=== PATIENT | male | born 1960 | race Caucasian/White ===

== ENCOUNTER 2018-01-08 08:26 | Day surgery (SDC) | payer MEDICAID, SELFPAY ==
--- NOTE | 2018-01-08 06:38 | PDOC.DSDIS_ITS ---
Discharge Plan Disposition Patient Disposition: HOME Condition: Good Discharge Details Reason For Visit: umbilical hernia repair Attending Provider: Katelin Hercules Primary Care Provider: Colton Patton Home Meds and New Rx's Prescriptions: New acetaminophen [Tylenol 8 Hour] 650 mg tablet extended release 650 mg PO Q8H PRN (Reason: pain) Qty: 30 RF: 0 ibuprofen 600 mg tablet 600 mg PO QID PRN (Reason: pain) Qty: 30 RF: 0 Continue betamethasone, augmented 0.05 % cream 1 applic Topical ONCE Qty: 50 RF: 3 aspirin 325 MG tablet,delayed release (DR/EC) 325 mg PO DAILY RF: 0 ketoconazole 120 ML shampoo 1 jak Topical DAILY PRNQty: 2 RF: 4 niacin 1,000 MG tablet extended release 2,000 mg PO DAILY Qty: 180 RF: 4 amlodipine 5 MG tablet 5 mg PO DAILY Qty: 90 RF: 4 hydrocortisone [Anusol-HC] 30 GM cream with perineal applicator 30 gm RC TID Qty: 1 RF: 3 calcium carbonate 600 MG tablet 600 mg PO DAILY Qty: 90 RF: 3 cholecalciferol (vitamin D3) 1,000 UNIT capsule 1,000 unit PO DAILY Qty: 90 RF: 3 Discharge Instructions Instructions: Ventral Hernia Repair (DC) Additional Instructions: Follow up: 01/23/18 at 09:15 Pain Medication: Ibuprofen 600 mg every 6 hours as needed Tylenol 650 mg every 6 hours as needed Miralax or Colace for constipation Other: May shower tomorrow Do not soak the incisions for 1 week May use ice for bruising and swelling Activity: No lifting, pulling or pushing >20 lb x 2 weeks Diet: Low fat 1. Because there will be medication in your system for the next 24 hours, you may feel a little sleepy. Your coordination will be affected. Therefore: a. Do not drive or operate dangerous equipment for 24 hours. b. Do not drink alcohol beverages for 24 hours (not even beer). c. Plan to go home and rest for the day. 2. Generally the only restriction on your activity is no lifting, pulling or pushing more then 20 lb for 4 weeks. You may feel fatigued for 2-4 weeks. 3 After you arrive home you may have a light meal and return to a normal diet as you can tolerate it without feeling sick to your stomach. 4. After surgery, you may feel pain or discomfort. Take the medications as prescribed. 5. If there are any questions regarding the findings of your procedure, please feel free to contact your doctor. 6. If you are unable to contact your doctor with a problem, contact the hospital at [phone]. 7. Continue all your regular medications unless directed otherwise. 8. You are being prescribed a Narcotic pain medication. Narcotic pain medications have an addiction potential for everyone. It is important that you take the medication as prescribed There is a limit on how many tablets we can prescribed, this has been decided by the state Please keep the medications in a secure place and do not let anyone know you have them at home If you have medication left over please discard them by crushing them in a little water and mixing in used coffee grounds or cat litter and putting in the trash. I understand the above instructions and have no questions. Signature of Patient or Responsible Adult Escort Date/Time Name of Responsible Adult Escort Signature of Nurse Date/Time Referrals: Katelin Hercules MD [ [facility] STAFF PHYSICIAN] - 01/23/18 9:15 am Activity:: No lifting >20 lb x 2 weeks Diet:: As Tolerated DS: Diagnosis Discharge Diagnosis (1) Umbilical hernia: Status: Acute
--- NOTE | 2018-01-08 06:39 | HPE_ITS ---
Assessment and Plan (1) Umbilical hernia: Current visit: No Status: Acute P\\ Umbilical Hernia repair with mesh Request bilateral rectus muscle block by anesthesia to assist with post- operative pain control. Risks, benefits and complications of an umbilical hernia repair were discussed with the patient. Occasions include but are not limited to bleeding, pain, infection, wound dehiscence, hernia recurrence, injury to underlying bowel and adverse reaction to the medications. Questions were entertained and answered to their satisfaction and they wish to proceed. No guarantees were given or implied. Bilateral rectus muscle block was discussed with the patient. We also discussed use of Tylenol and ibuprofen for postoperative pain. If narcotics are needed we discussed side effects risks of addiction and how to safely dispose of any leftover medication. History of Present Illness Chief Complaint: Umbilical Hernia repair Narrative: Mr. Mac is a 57-year-old gentleman who is here today with his mother and caregiver to discuss a hernia repair. Mr. Mac tells me that he noticed some discomfort and a small bulge when he was visiting a family member in September. He has not had any pain up until last night when he felt a little discomfort when he went to bed. He denies any changes in bowel habits nausea or vomiting. He underwent a colonoscopy in 2014 and had no issues with a anesthesia at that time. He has a history of hypertension and hyperlipidemia which are both controlled. He does take a full dose aspirin daily which I have asked him to stop. He denies any chest pain or shortness of breath with activity. There have been no changes in his health since he was seen in the office. Review of Systems Cardiovascular Denies rapid heart rate, Denies irregular heart rhythm, Denies dyspnea and Denies dyspnea on exertion Respiratory Denies chest congestion, Denies cough, Denies dyspnea and Denies dyspnea on exertion [facility] Family History Mother Diabetes Essential hypertension Hyperlipidemia Neoplasm Father Diabetes Essential hypertension Heart disease Hyperlipidemia Sister No problems noted. Brother Hyperlipidemia Sister No problems noted. Sister No problems noted. Grandfather No problems noted. Grandfather No problems noted. Grandmother No problems noted. Grandmother No problems noted. Sister No problems noted. Sister No problems noted. Brother No problems noted. Medical History Vitamin B12 deficiency (Chronic) Knee pain, acute (Resolved) Obesity (Chronic) Mental retardation (Chronic) Hyperlipidemia (Chronic 10/06/12) Essential hypertension (Chronic 11/08/15) Personal history of colonic polyps (Resolved) Social History household members: other details: 2 pets and animals: Yes pets and animals: bird(s) Smoking/Tobacco Use Status: Former Tobacco Use alcohol intake: never substance use type: does not use sabrina/hindu: Protestant special sabrina needs: No Surgical History H/O umbilical hernia repair (Acute ~01/08/18) Hx of colonoscopy with polypectomy (Acute ~2014) Meds Home Medications Medication Instructions Recorded Confirmed Type aspirin 325 mg PO DAILY tab-cap 09/28/12 01/08/18 History ketoconazole 1 jak TOPICAL DAILY PRN #2 script 06/21/15 01/08/18 History niacin 2,000 mg PO DAILY #180 tab-cap 06/17/17 01/08/18 Rx amlodipine 5 mg PO DAILY #90 tab-cap 06/27/17 01/08/18 Rx calcium carbonate 600 mg PO DAILY #90 tab-cap 06/27/17 01/08/18 Rx cholecalciferol (vitamin D3) 1,000 unit PO DAILY #90 tab-cap 06/27/17 01/08/18 Rx hydrocortisone [Anusol-Hc 2.5%] 30 gm RC TID #1 script 06/27/17 01/08/18 Rx betamethasone, augmented 0.05 % 1 applic TOPICAL ONCE #50 gm 11/19/17 01/08/18 Rx topical cream Allergies Allergy/AdvReac Type Severity Reaction Status Date / Time No Known Allergies Allergy Unverified 11/19/17 10:42 Exam Const General: cooperative, comfortable and no acute distress Resp Effort & Inspection: normal respiratory effort Auscultation: clear to auscultation bilaterally Cardio Rate: regular rate Heart Sounds: no gallops, no murmurs and no rubs GI Palpation: hernia umbilical
[2018-01-08 08:46] VITALS: BP 132/82; PULSE 67; RESP 18; TEMP 36.2; O2SAT 97
[2018-01-08] MEDS: Lactated Ringers 1,000 ML 80 ML IV (09:06)
[2018-01-08] MEDS: Bupivacaine LIPOSOME/PF 133 MG/10 ML VIAL IJ (09:40)
[2018-01-08] MEDS: Lidocaine 1% Pres-Free 5 ML VIAL (10:00)
[2018-01-08 11:10] VITALS: BP 104/68; PULSE 58; RESP 16; TEMP 35.7; O2SAT 95
[2018-01-08] MEDS: Acetaminophen 325 MG TAB 650 MG PO (11:17)
--- NOTE | 2018-01-08 12:06 | ROE_ITS ---
REPORT OF OPERATIVE PROCEDURE DATE OF PROCEDURE January 08, 2018 PREOPERATIVE DIAGNOSIS Umbilical hernia. POSTOPERATIVE DIAGNOSES Umbilical hernia measuring 1.5 x 2 cm. PROCEDURE Umbilical hernia repair with Ventralex 6.5-cm round hernia patch. ANESTHESIA Monitored Anesthesia Care and bilateral modified rectus muscle block. ANESTHESIA PROVIDER Leonard Carrero C.R.N.A. SURGEON Katelin Hercules M.D. CONGRESSIONAL DISTRICT AIDE TORRIE Guerrero BLOOD LOSS Less than 10 cc. SPECIMENS None. COMPLICATIONS No immediate complications. INDICATIONS FOR PROCEDURE Mr. Mac is a 57-year-old gentleman who noted an umbilical hernia, which has been causing him some d iscomfort. The risks, benefits, and complications of the procedure were reviewed with him and his fam pillo and he wished to proceed. No guarantees were given or implied. DESCRIPTION OF PROCEDURE After informed consent was obtained, the patient was taken to the Operating Room and placed in the sol pine position. SCDs were applied, and a time-out was done. The patient's name, date of , proced ure type, and site, allergies to medications, DVT prophylaxes, and antibiotic given were all reviewed . Next, Anesthesia placed the patient under Monitored Anesthesia with Propofol and did the block. Next, the patient's abdomen was prepped and draped in a sterile surgical fashion, and another time-out was done. 1% lidocaine was then injected just into the dermis below the umbilicus. An incision was made with a #15 blade and dissection was taken down through the subcutaneous tissue down to the fascia usi ng cautery. The umbilical stalk was identified and cut with cautery. The hernia sac was identified an d opened. No bowel was noted within the hernia sac. The hernia sac was trimmed down to the level of t he fascia. A finger sweep under the fascia was done. No adhesions were noted. The opening was measure d and it was 1.5 x 2 cm. A 6.5-cm round Ventralex hernia patch was then placed under the fascia and s ecured in four corners with #2-0 Prolene. Once secured, the fascia was closed with #2-0 Vicryl. The umbilical stalk was attached back down to the fascia using the #2-0 Vicryl. The subcutaneous tissue w as reapproximated using #2-0 Vicryl. The dermis was closed with #4-0 Vicryl. The skin was cleaned and dried, and Skin Affix was applied. The patient was woken up and taken back [facility] condition. Sponge, instrument and needle counts were correct x2 at the end of the case.
== END 2018-01-08 11:50 | disposition home or self-care (01) ==
LOC: SUR 08:26
PROVIDERS: PCP Emergency Medicine; Visit Provider Surgery
PROC: (CPT 49585; principal; 2018-01-08 09:45)
DX: K42.9 Umbilical hernia without obstruction or gangrene (principal); G89.18 Other acute postprocedural pain
CPT/HCPCS: 49585; 76942; NC; C1781; J0131; J0690; J1100; J1885; J2250; J2405; J3010

== ENCOUNTER 2018-09-30 10:34 | Outpatient (CLI) | payer MEDICAID, SELFPAY ==
[2018-09-30 13:05] LABS: Hemoglobin A1C 5.3 % (4.5-6.2)
[2018-10-01 09:12] LABS: PSA, Screening 0.4 ng/ml (0-3.5)
== END 2018-09-30 10:54 ==
PROVIDERS: PCP Emergency Medicine; Visit Provider Emergency Medicine
DX: E11.9 Type 2 diabetes mellitus without complications (principal); E66.9 Obesity, unspecified; Z12.5 Encounter for screening for malignant neoplasm of prostate
CPT/HCPCS: 36415; 84153; 83036

== ENCOUNTER 2019-11-02 04:56 | Outpatient (CLI) | payer MEDICAID, SELFPAY ==
[2019-11-02 12:57] LABS: BUN 21 mg/dL (7-18); CREATININE 1.13 mg/dL (0.70-1.30); Calcium 8.8 mg/dL (8.5-10.1); Calculated LDL 145 mg/dL (<100); Chloride 100 mmol/L (98-107); Cholesterol 218 mg/dL (<200); Glucose 97 mg/dL (74-106); HDL Cholesterol 50 mg/dL (40-60); Potassium 3.9 mmol/L (3.5-5.1); Sodium 137 mmol/L (136-145); Triglyceride 115 mg/dL (<150)
== END 2019-11-02 05:16 ==
PROVIDERS: PCP Emergency Medicine; Visit Provider Emergency Medicine
DX: E78.5 Hyperlipidemia, unspecified (principal); I10 Essential (primary) hypertension
CPT/HCPCS: 36415; 80048; 80061

== ENCOUNTER 2021-04-17 18:26 | Outpatient (REF) | payer MEDICAID, SELFPAY ==
[2021-04-17 19:09] LABS: ALT 32 U/L (16-63); AST 26 U/L (15-37); Albumin 4.6 g/dL (3.4-5.0); Alkaline Phosphatase 75 U/L (46-116); Anion Gap 10.2 mmol/L (3-11); BUN 20 mg/dL (7-18); Bilirubin, Total 0.6 mg/dL (0.2-1.0); CO2 26.8 mmol/L (21.0-32.0); CREATININE 1.1 mg/dL (0.70-1.30); Calcium 9.2 mg/dL (8.5-10.1); Calculated LDL 130 mg/dL (<100); Chloride 104 mmol/L (98-107); Cholesterol 208 mg/dL (<200); Glucose 98 mg/dL (74-106); HDL Cholesterol 58 mg/dL (40-60); Potassium 4.1 mmol/L (3.5-5.1); Sodium 141 mmol/L (136-145); Total Protein 7.6 g/dL (6.4-8.2); Triglyceride 103 mg/dL (<150)
[2021-04-18 17:34] LABS: PSA, Screening 0.5 ng/mL (0.0-4.5)
[2021-04-19 01:11] LABS: Vitamin D 25 Total 36.8 ng/mL (30-100)
[2021-04-19 10:23] LABS: Hepatitis C Ab w Rflx HCV PCR Negative (Negative)
[2021-04-19 10:32] LABS: HIV-1/2 Ag & Ab Screen Negative (Negative)
== END 2021-04-17 18:27 | disposition home or self-care (01) ==
LOC: LBN 18:26
PROVIDERS: PCP Family Medicine; Visit Provider Family Medicine
DX: E55.9 Vitamin D deficiency, unspecified (principal); E78.5 Hyperlipidemia, unspecified; I10 Essential (primary) hypertension; Z11.59 Encounter for screening for other viral diseases; Z12.5 Encounter for screening for malignant neoplasm of prostate; Z11.4 Encounter for screening for human immunodeficiency virus [HIV]
CPT/HCPCS: 80053; 80061; 82306; 84153; 86803; 87389

== ENCOUNTER 2022-11-28 09:03 | Outpatient (REF) | payer MEDICAID, SELFPAY ==
[2022-11-28 21:18] LABS: HCT 43.2 % (40.0-50.0); HGB 14.5 g/dL (13.5-17.5); MCH 31.5 pg (27.0-33.0); MCHC 33.6 % (32.0-36.0); MCV 94 fL (80-95); MPV 10.9 fL (8.0-11.0); Platelet Count 142 10^3/uL (130-400); RBC 4.61 10^6/uL (4.36-5.78); RDW 13.8 % (11.8-14.1); RDW-SD 47.8 fL; WBC 7.95 10^3/uL (4.4-10.8)
[2022-11-28 21:28] LABS: ALT 30 U/L (16-63); AST 36 U/L (15-37); Alkaline Phosphatase 78 U/L (46-116); Anion Gap 5.4 mmol/L (3-11); BUN 16 mg/dL (7-18); Bilirubin, Total 0.3 mg/dL (0.2-1.0); CO2 27.6 mmol/L (21.0-32.0); CREATININE 1.4 mg/dL (0.70-1.30); Calcium 9.2 mg/dL (8.5-10.1); Calculated LDL 145 mg/dL (<100); Chloride 104 mmol/L (98-107); Cholesterol 207 mg/dL (<200); Estimated GFR 56.48 (mL/min/1.73m2); Glucose 103 mg/dL (74-106); HDL Cholesterol 51 mg/dL (40-60); Potassium 4.3 mmol/L (3.5-5.1); Sodium 137 mmol/L (136-145); Total Protein 7.3 g/dL (6.4-8.2); Triglyceride 57 mg/dL (<150)
[2022-11-29 20:09] LABS: PSA, Screening 0.5 ng/mL (<=4.5)
== END 2022-11-28 09:04 | disposition home or self-care (01) ==
LOC: NCHCN 09:03
PROVIDERS: Visit Provider Family Medicine
DX: Z00.00 Encounter for general adult medical examination without abnormal findings (principal); I10 Essential (primary) hypertension; E78.5 Hyperlipidemia, unspecified; Z12.5 Encounter for screening for malignant neoplasm of prostate
CPT/HCPCS: 80053; 80061; 84153; 85027

== ENCOUNTER 2023-11-18 10:30 | Outpatient (REF) | payer MEDICAID, SELFPAY ==
--- OUTSIDE RECORDS SUMMARY | 2023-11-18 10:32 | XMS_ITS | Continuity of Care Document ---
Author Organization [place] - [facility], [facility] Address [address] [place] [address] Care Team Providers Care Bale Sewer Name Role Phone KAMARI BAEZA Dentist Assessment Encounter Date Assessment Date Assessment LastModified by Organization Details LastModified Time 08/18/2023 08/18/2023 Phlegm/rhinitis: The patient has a persistent phlegm, likely due to post-nasal drip or a prolonged after-effects from viral infection. A chest x-ray is recommended to rule out any underlying issues, he did not complete this yet though it was ordered at last visit. He agrees to get xray today or tomorrow at [facility]. The patient should continue to use ahkq-gfi-vegvjnq cough suppressants and consider gargling with salt water for throat discomfort. - A prescription for a combination nasal spray containing an antihistamine will be provided as an alternative to fluticasone (steroid alone). The patient should use this new nasal spray daily for a couple of weeks and monitor for any improvement in symptoms. If symptoms persist, further evaluation and treatment options will be considered during the follow-up appointment. [email or web address] Not available 08/18/2023 18:13:55 Plan of Treatment Reminders Order Date Submit Date Provider Last Modified By Organization Details Last Modified Time Details Appointments Annual Wellness Exam 40 2023 08:30A M Not available Not available Not available Follow Up 20 2023 09:50A M Not available Not available Not available Lab None recorded. Referral None recorded. Procedures None recorded. Surgeries None recorded. Imaging None recorded. Medication Orders Dymista 137 mcg-50 mcg/spray nasal spray 202315/ 024 [facility] #[id number], [address], [place], [place], [id number], 09/08/2023 12:03:38 famotidin e 40 mg tablet 2023 024 [facility] #[id number], [address] [place], [id number], 11/18/2023 08:41:15 Patient TargetsNo targets recorded. Patient Instructions Encounter Date Encounter Id Patient Instructions Last Modified By Organization Details Last Modified Time 08/18/2023 [id number] - Stop using the current fluticasone nasal spray and start using the prescribed combination nasal spray with an antihistamine. - Gargle with salt water to alleviate throat discomfort. - Schedule and complete a chest x-ray. - Continue gpmy-fnx-cxfhvsb cough suppressants and consider salt water gargling for throat discomfort. - Follow up in October or contact the clinic if symptoms worsen or new symptoms arise. [email or web address] Not available 08/18/2023 15:34:22 Reason for Referral None Reported. Results Created Date Observation Date Name Description Value Unit Range Abnormal Flag Note LastModifiedBy Organization Detail LastModifiedTime 08/19/19 24 08/19/2023 XR, chest , 2 view [facility] Eryn Freeman [id number] INFINI TT PACS TRANSC RIPTIO N REPORT _ Patien t Name: AIMEE AGUIAR AENeeraj J MRN: Sex: : Age: [id number] M [age] Accoun t: Access ion: Admit: StayTy pe: [id number] O Stefani d: Order ID: Submit ton: Caio Ferreira er: 2023 09:25 [id number] SHAE PEREZ ton: Techno logist : Result ed: 2023 09:17 KXR 2023 11:17 _ FINAL REPORT EXAM: XR CHEST 2V PA AND LATERA L CLINIC AL HISTOR Y: Reason for Chest: Cough TECHNI QUE: 2D digita l imagin g was perfor med of the chest. Two images were obtain ed. PA and latera l views were obtain ed. COMPAR SUMEET: CHEST SINGLE VIEW from 2011 FINDIN GS: There is poor inspir ation. There is crowdi ng of the pulmon linnea vascul ature. MEDIAS TINUM: Normal . HEART: Normal . PULMON LINNEA VASCUL ATURE: Normal . LUNGS: Hazy increa sed opacit ies are seen in the left lung base. The right lung is clear. PLEURA L SPACE: No pleura l effusi on or pneumo thorax . BONE:W ithin normal limits for the patien t's age. OTHER FINDIN GS:Nor mal. IMPRES NOLA: Questi on of an infilt rate in the left lung base. DATA REPOSI TORY: RADIAT ION DOSE DELIVE RED: Electr onical ly signed by: Marquise Beth ed: 2023 11:17 [facility] (Lab) [address] [place] [address], [address], 08/26/2023 07:46:39 09/12/19 24 09/12/2023 XR, chest , 2 view [facility] RADIOL OGY [place] [id number] RADIOL OGY PACS TRANSC RIPTIO N REPORT _ Patien t Name: AIMEE AGUIAR MRN: Sex: : Age: [id number] M 9[age] Accoun t: Access ion: Admit: StayTy pe: [id number] O Ordere d: Order ID: Submit ton: Caio marcano Provid er: 2023 09:45 [id number] SHAE ALVARENGA ton: Techno logist : Result ed: 2023 09:35 AXS 2023 11:45 _ FINAL REPORT EXAMIN ATION: XR CHEST 2V PA AND LATERA L CLINIC AL HISTOR Y: Reason for Chest: Cough Add'l Info: TECHNI QUE: PA and latera l views of the chest COMPAR SUMEET: Chest radiog raphs 2011 and August 19, 2023 FINDIN GS: Lungs are clear withou t pleura l effusi on or pneumo thorax . Cardio medias tinal contou rs and pulmon linnea vascul ature are normal . No free air below the diaphr agm or focal extrat horaci c soft tissue abnorm ality. No displa jordyn fractu re or destru ctive bone lesion . Multil evel thorac ic spine degene ration . IMPRES NOLA: Normal chest radiog raphs. Thank you for lettin g us partic ipate in the care of this patien t. If you are a health care [facility] and have any questi ons regard ing this report , please contac t the number below. For patien ts who have questi ons please contac t the health care profes sional that reques ton your imagin g first. Electr onical ly signed by: Cody Marroquin MD Radiol laya fontenot ([phone]), at 7/19/2 024 11:45 AM [facility] (Lab) [address] [place], [address], 09/23/2023 11:01:37 11/10/1911/28/2022 imagi ng/dru chávez tic resul t No observ ation record ed. [email or web address] Not Available 11/09 04:34:48 Result Notes None recorded. Problems Name Problem SNOMED Code Status Onset Date Resolution Date Notes Provider Name and Address Organization Details Recorded Time Essential hypertensio n 45450530 Active 2022 Problem Code: I10; Problem Code Type: ICD-10; MD Enid [address], [address] 4 13:22:11 Hyperlipide greta 53608933 Active 2022 Problem Code: E78.5; Problem Code Type: ICD-10; MD Enid [address], [address] 4 13:22:12 Obesity 049309945 Active 2022 Problem Code: E66.9; Problem Code Type: ICD-10; MD Enid [address], [address] 4 13:22:16 Vitamin D deficiency 63690326 Active 2022 Problem Code: E55.9; Problem Code Type: ICD-10; MD Enid [address], [address] 4 13:22:24 Mild neurocognit jaquelin disorder 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 Active 2022 Problem Code: G31.84; Problem Code Type: ICD-Akiko; MD Enid [address], [address] 4 13:22:15 Atrophy of testis 19100388 Active 2022 Problem Code: N50.0; Problem Code Type: ICD-10; MD Enid [address], [address] 4 13:22:08 Umbilical hernia 682960655 Active 2022 Problem Code: K42.9; Problem Code Type: ICD-10; MD Enid [address], [address] 4 13:22:22 Cough 85205627 Active [address], [address] 4 13:22:10 Allergic rhinitis 37603644 Active [address], [address] 4 15:29:13 Pneumonia 577504043 Active [address], [address] 4 17:25:39 Hyperglycem ia 53648432 Active 2023 Maxine nowak, [facility] 4 08:14:39 Problem Notes None recorded. Medical Equipment None Reported. Allergies No known drug allergies Medications Name Sig Start Date Stop Date Status Note LastModified by Organization Details LastModified Time atorvastati n 20 mg tablet Take 1 tablet every day by oral route at bedtime, for hyperlipi demia. 2023 active Not Available Not Available Not Avai lable ketoconazol e 2 % shampoo Shampoo with 2 ml as directed once a day as needed active Not Available Not Available No t Available niacin ER 1,000 mg tablet,exte nded release 24 hr TAKE 2 TABLETS BY MOUTH DAILY active Not Available Not Available No t Available azithromyci n 250 mg tablet TAKE 2 TABLETS (500 MG) BY ORAL ROUTE ONCE DAILY FOR 1 DAY THEN 1 TABLET (250 MG) BY ORAL ROUTE ONCE DAILY FOR 4 DAYS 09/07 completed Not Available Not Available Not Available aspirin 325 mg tablet Take 1 tablet by mouth once a day active Not Available Not Available No t Available famotidine 40 mg tablet TAKE 1 TABLET BY MOUTH EVERY DAY active Not Available Not Available No t Available betamethaso ne, augmented 0.05 % topical cream 08/11 completed Not Available Not Available Not Available amlodipine 5 mg tablet TAKE 1 TABLET BY MOUTH DAILY active Not Available Not Available No t Available acetaminoph en ER 650 mg tablet,exte nded release Take 1 tablet by mouth every eight hours as needed for pain active Not Available Not Available No t Available hydrocortis one 2.5 % topical cream with perineal applicator Apply as directed to affected area three times a day active Not Available Not Available No t Available calcium 600 mg (as calcium carbonate 1,500 mg) tablet TAKE 1 TABLET BY MOUTH ONCE A DAY active Not Available Not Available No t Available ofloxacin 0.3 % ear drops INSTILL 10 DROPS IN AFFECTED EAR(S) DAILY FOR 7 DAYS 07/02 completed Not Available Not Available Not Available lidocaine 5 % topical patch UNWRAP AND APPLY 1 PATCH TO SKIN ONCE DAILY. MAY WEAR UP TO 12 HOURS active Not Available Not Available No t Available betamethaso ne dipropionat e 0.05 % topical cream active Not Available Not Available Not Available ibuprofen 600 mg tablet Take 1 tablet by mouth four times a day as needed for pain active Not Available Not Available No t Available albuterol sulfate HFA 90 mcg/actuati on aerosol inhaler INHALE 2 PUFFS EVERY 4 HOURS active Not Available Not Available No t Available SF 5000 Plus 1.1 % dental cream Use as directed 11/20 completed .drx Not Available Not Available Not Available fluticasone propionate 50 mcg/actuati on nasal spray,suspe nsion SHAKE LIQUID AND USE 1 SPRAY IN EACH NOSTRIL TWICE DAILY 08/17 completed Not Available Not Available Not Available amoxicillin 875 mg-potassiu m clavulanate 125 mg tablet TAKE 1 TABLET BY MOUTH EVERY 12 HOURS 09/07 completed Not Available Not Available Not Available cholecalcif rain (vitamin D3) 25 mcg (1,000 unit) capsule Take 1 capsule by mouth once a day active Not Available Not Available No t Available TobraDex 0.3 %-0.1 % eye drops,suspe nsion SHAKE LIQUID AND INSTILL 1 DROP IN BOTH EYES FOUR TIMES DAILY 07/02 completed Not Available Not Available Not Available Systane (PF) 0.4 %-0.3 % eye drops in a dropperette active Not Available Not Available Not Available azelastine 137 mcg-flutica sone 50 mcg/spray nasal spray SHAKE LIQUID AND USE 1 SPRAY IN EACH NOSTRIL TWICE DAILY 09/07 completed Not Available Not Available Not Available Chest Congestion Relief DM 10 mg-100 mg/5 mL oral syrup TAKE 10 ML BY MOUTH EVERY 4 HOURS 09/07 completed Not Available Not Available Not Available Vitals Date Recorded Body height Body mass index (BMI) Body weight Body temperature Oxygen saturation Oxygen saturation in Arterial blood by Pulse oximetry Heart rate Systolic blood pressure Diastolic blood pressure Provider Name and Address Organization Details Last Updated DateTime 4 173.355 cm 38 kg/m2 798854. 28 g 97.9 [degF] 96 % 96 % 65 /min 142 mm[Hg] 76 mm[Hg] LUCIA LEE MD [address], [place], [address] [place] [address] 4 15:19:37 Social History Question Answer Notes LastModified by Organizat ion Details LastModified Time Tobacco Smoking Status Former Smoker Pari Meneses LPN [facility], [facility] 07/03/2023 09:11:22 Do You Have An Advance Directive? No only One Person--madi t's Mom [email or web address] Information not available 11/18/2023 What Type Of Diet Are You Following? REGULAR Eating More Veggies And Fruits In The Summer [email or web address] Information not available 11/18/2023 How Many Days Of Moderate To Strenuous Exercise, Like A Brisk Walk, Did You Do In The Last 7 Days? 7 [email or web address] Information not available 11/18/2023 On Those Days That You Engage In Moderate To Strenuous Exercise, How Many Minutes, On Average, Do You Exercise? 20 [email or web address] Information not available 11/18/2023 When Did You Quit Smoking? 16+yearssin angel ramos [email or web address] Information not available 07/03/2023 Would You Say That, In General, Your Health Is Good [email or web address] Information not available 11/17/2023 How Often Does Anyone, Including Family, Physically Hurt You? Never [email or web address] Information not available 11/17/2023 How Often Does Anyone, Including Family, Insult Or Talk Down To You? Never [email or web address] Information no t available 11/17/2023 How Often Does Anyone, Including Family, Threaten You With Harm? Never [email or web address] Information not available 11/17/2023 How Often Does Anyone, Including Family, Scream Or Curse At You? Never [email or web address] Information not available 11/17/2023 Within The Past 12 Months, You Worried That Your Food Would Run Out Before You Got Money To Buy More. Never True [email or web address] Information n ot available 11/17/2023 Within The Past 12 Months, The Food You Bought Just Didn't Last And You Didn't Have Money To Get More. Never True [email or web address] Information n ot available 11/17/2023 How Hard Is It For You To Pay For The Very Basics Like Food, Housing, Medical Care, And Heating? Would You Say It Is: Not Hard At All [email or web address] Information not available 11/17/2023 In The Past 12 Months, Has Lack Of Reliable Transportation Kept You From Medical Appointments, Meetings, Work Or From Getting Things Needed For Daily Living? No [email or web address] Information not available 11/17/2023 What Is Your Housing Situation Today? I Have Housing. [email or web address] Information not available 11/17/2023 Who Do You Live With? Mother [email or web address] Information not available 11/18/2023 How Often In The Past Year Have You Used Marijuana (including Smoking, Vaping, Dabbing, Or Edibles)? Never [email or web address] Information not available 11/17/2023 How Often In The Past Year Have You Used Prescription Medications That Were Not Prescribed To You? Never [email or web address] Information n ot available 11/17/2023 How Often In The Past Year Have You Taken Your Own Prescription Medication More Than The Way It Was Prescribed Or For Different Reasons Than Its Intended Purpose? Never Information no t available 11/17/2023 How Often In The Past Year Have You Used Other Drugs (for Example, Heroin, Cocaine, Meth, Salvia, Inhalants)? Never [email or web address] Information not available 11/17/2023 Have You Ever Used IV Drugs? No [email or web address] Information not available 11/17/2023 Date Of Most Recent SBINS 11/17/2023 [email or web address] Information not available 11/17/2023 What Was The Date Of Your Most Recent Tobacco Screening? 11/18/2023 [email or web address] Information not available 11/18/2023 What Is Your Current Pack Years? 10packyears [email or web address] Information not available 07/03/2023 What Types Of Sporting Activities Do You Participate In? Walking On Trails [email or web address] Information not available 11/18/2023 Do You Have Any Dietary Restrictions? No [email or web address] Information not available 11/18/2023 Sex: Male Functional Status Question Answer Note LastModified by Organization D etails LastModified Time What is your exercise level? Moderate [email or web address] Information not available 11/18/2023 Mental Status None recorded. Family History Nothing Reported Notes:*Problem: Mother: DM, HTN, HLD, Cervical cancer, asthma Father: @ 72, DM, HTN, heart disease, HLD, alcohol abuse, depression Brother: HLD Medical History No medical history recorded. Immunizations Vaccine Type Date Status Provider Name and Address Organization Details Recorded Time zoster recombinant 07/03/[address], [place], [address], [facility] 07/03/2023 09:32:56 Tdap 07/03/[address], [place], [address], [facility] 07/03/2023 09:32:56 Influenza, split virus, trivalent, PF 11/18/2023 completed [address], [place], [address], [facility], [facility]. 11/18/2023 09:48:22 Influenza, split virus, quadrivalent, PF 11/22/2022 completed Not Available [facility] 03/07/2023 05:30:37 Past Encounters Encounter ID Performer Location Encounter Start Date Encounter Closed Date Diagnosis/Indication Diagnosis SNOMED-CT Code Diagnosis ICD10 Code [id number] Judith Carmona PA-C [address] [address] 08/12/2023 10:01:30 08/12/2023 10:26:21 Cough 57696959 R05.9 Posterior rhinorrhea 758 84191 R09.82 Pain of ri ght shoulder joint 1931938829 7475689 M25.437 [id number] LUCIA LEE MD [address] [address] 08/18/2023 15:03:20 08/18/2023 15:33:56 Allergic rhinitis 29727350 J30.9 Health Concerns Section Related Observation LastModified by Organization Detai ls LastModified Time None Recorded Concern Status LastModified by Organization Details LastModified Time None Recorded Payers Encounter Date Sequence Insurance Name Policy Number Policy Antonio Covered Member ID Antonio Member ID Guarantor Name 08/18/2023 1 [facility] ([facility] Carlito Amado [id number] Carlito Amado Notes Date Note Type Note Provider Name and Address Organization Details Recorded Time 08/18/2023 text/html HPI Notes: Diego matias presents with persistent cough, phlegm, and throat discomfort. The patient is a 62-year-old male who has been experiencing a cough and phlegm for quite a while. He has tried using cough syrup and cough drops but has not found any relief. He has also been using a nasal spray, but it has not alleviated his symptoms. The patient has a history of smoking but quit many years ago; however, he is unsure of the duration of his smoking history. MD [address], [place], [address], [facility], [facility]. 08/18/2023 18:15:11
--- OUTSIDE RECORDS SUMMARY | 2023-11-18 10:33 | XMS_ITS ---
Author Organization Unknown Address [address] [place] [phone] Phone Care Team Providers Care Undercutter Operator Name Role Phone JESUS MYERS Attending Unavailable Results XR CHEST 2V PA AND LATERAL - Completed: 09/12/2023 09:52 LOINC: [facility] RADIOLOGY [place], [place] [address] RADIOLOGY PACS [facility] REPORT Patient Name: MARLON MURPHY MRN: Sex: : Age: [id number] M 1960 62 Account: Accession: Admit: StayType: [id number] 09/12/2023 O Ordered: Order ID: Submitted: Ordering Provider: 09/12/2023 09:45 [id number] KT LUCIA LEE Completed: Technologist: Resulted: 09/12/2023 09:35 AXS 09/12/2023 11:45 FINAL REPORT EXAMINATION: XR CHEST 2V PA AND LATERAL CLINICAL HISTORY: Reason for Chest: Cough Add'l Info: TECHNIQUE: PA and lateral views of the chest COMPARISON: Chest radiographs April 14, 2011 and August 19, 2023 FINDINGS: Lungs are clear without pleural effusion or pneumothorax. Cardiomediastinal contours and pulmonary vasculature are normal. No free air below the diaphragm or focal extrathoracic soft tissue abnormality. No displaced fracture or destructive bone lesion. Multilevel thoracic spine degeneration. IMPRESSION: Normal chest radiographs. Thank you for letting us participate in the care of this patient. If you are a health care provider and have any questions regarding this report, please contact the number below. For patients who have questions please contact the health health care assistant that requested your imaging first. Electronically signed by: Cynthia Marroquin MD Radiology [place] ([phone]), at 09/12/2023 11:45 AM Social History Type Status Start Date End Date Code Code Syst em Smoking History Former smoker 3791021 SNOMED CT Sex Male Medications Medication Start Date End Date Route Frequency Dose Code Code System Medication Instructions Home Meds Acetaminophen 325MG Oral Tablet 10/11/2018 Unknown ORAL NEEDED EVERY 8 HOUS 650 MILLIGRAMS 633858 RxNorm TAKE 650 MILLIGRAMS ORAL NEEDED EVERY 8 HOUS Anusol-HC 2.5% Rectal Cream 10/11/2018 Unknown RECTAL THREE TIMES A DAY 1 unit(s) 3536996 RxNorm INSERT 1 EACH RECTAL THREE TIMES A DAY Aspirin 325MG Oral Tablet 10/11/2018 Unknown ORAL DAILY 325 MILLIGRAMS 203668 RxNorm TAKE 325 MILLIGRAMS ORAL DAILY CALCIUM CARBONATE 1.5 GM TAB 10/11/2018 Unknown ORAL DAILY 1.5 GRAM RxNorm TAKE 1.5 GRAM ORAL DAILY Ibuprofen 600MG Oral Tablet 10/11/2018 Unknown ORAL NEEDED FOUR TIMES A DAY 600 MILLIGRAMS 749791 RxNorm TAKE 600 MILLIGRAMS ORAL NEEDED FOUR TIMES A DAY KETOCONAZOLE 2% SHAMPOO 10/11/2018 Unknown TOPICAL APPLICA TION NEEDED DAILY 1 RxNorm 1 TOPICAL APPLICATION NEEDED DAILY Niacin 1000 MG Oral Tablet, Extended Release 10/11/2018 Unknown ORAL DAILY 3141352 RxNorm TAKE 000 MILLIGRAMS ORAL DAILY Vitamin D3 1000IU Oral Tablet 10/11/2018 Unknown ORAL DAILY 1 TABLET 19920726 RxNorm TAKE 1 TABLET ORAL DAILY amLODIPine Besylate 5MG Oral Tablet 10/11/2018 Unknown ORAL DAILY 5 MILLIGRAMS 19720725 RxNorm TAKE 5 MILLIGRAMS ORAL DAILY Hospital Discharge Instructions Should you have any questions prior to discharge, please contact a member of your healthcare team. If you have left the hospital and have any questions, please contact your primary care physician. Reason For Referral No Data Found Allergies and Adverse Reactions Allergy Substance Reaction Severity Start Date Concern Status Co de Code System No Known Allergies Moderate Active Plan of Treatment No Data Found Encounters Encounter Diagnosis Start Date Code Code Sys tem Cough 09/12/2023 84664621 SNOMED-CT Personal Care Team Section Performer Name Performer Role Active Date Inactive Da te Imaging Narrative Notes [facility] RADIOLOGY [place], [place] [address] RADIOLOGY PACS [facility] REPORT Patient Name: MARLON MURPHY MRN: Sex: : Age: [id number] M 1960 62 Account: Accession: Admit: StayType: [id number] 09/12/2023 O Ordered: Order ID: Submitted: Ordering Provider: 09/12/2023 09:45 [id number] LUCIA ARAYA Completed: Technologist: Resulted: 09/12/2023 09:35 AXS 09/12/2023 11:45 FINAL REPORT EXAMINATION: XR CHEST 2V PA AND LATERAL CLINICAL HISTORY: Reason for Chest: Cough Add'l Info: TECHNIQUE: PA and lateral views of the chest COMPARISON: Chest radiographs April 14, 2011 and August 19, 2023 FINDINGS: Lungs are clear without pleural effusion or pneumothorax. Cardiomediastinal contours and pulmonary vasculature are normal. No free air below the diaphragm or focal extrathoracic soft tissue abnormality. No displaced fracture or destructive bone lesion. Multilevel thoracic spine degeneration.
--- OUTSIDE RECORDS SUMMARY | 2023-11-18 10:33 | XMS_ITS ---
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 Name Role Phone JESUS MYERS Attending Unavailable Results XR CHEST 2V PA AND LATERAL - Completed: 08/19/2023 09:35 LOINC: [facility] [place], [place] [address] [facility] [employer]PERVIS[employer] REPORT Patient Name: MARLON MURPHY MRN: Sex: : Age: [id number] M [id number] Account: Accession: Admit: StayType: [id number] 08/19/2023 O Ordered: Order ID: Submitted: Ordering Provider: 08/19/2023 09:25 [id number] [place] LUCIA LEE Completed: Technologist: Resulted: 08/19/2023 09:17 KXR 08/19/2023 11:17 FINAL REPORT EXAM: XR CHEST 2V PA AND LATERAL CLINICAL HISTORY: Reason for Chest: Cough TECHNIQUE: 2D digital imaging was performed of the chest. Two images were obtained. PA and lateral views were obtained. COMPARISON: CHEST SINGLE VIEW from 04/14/2011 FINDINGS: There is poor inspiration. There is crowding of the pulmonary vasculature. MEDIASTINUM: Normal. HEART: Normal. PULMONARY VASCULATURE: Normal. LUNGS: Hazy increased opacities are seen in the left lung base. The right lung is clear. PLEURAL SPACE: No pleural effusion or pneumothorax. BONE:Within normal limits for the patient's age. OTHER FINDINGS:Normal. IMPRESSION: Question of an infiltrate in the left lung base. DATA REPOSITORY: RADIATION DOSE DELIVERED: Electronically signed by: Marquise Beth Dictated: 08/19/2023 11:17 Social History Type Status Start Date End Date Code Code Syst em Smoking History Former smoker [id number] SNOMED CT Sex Male Medications Medication Start Date End Date Route Frequency Dose Code Code System Medication Instructions Home Meds Acetaminophen 325MG Oral Tablet 10/11/2018 Unknown ORAL NEEDED EVERY 8 HOUS 650 MILLIGRAMS 418514 RxNorm TAKE 650 MILLIGRAMS ORAL NEEDED EVERY 8 HOUS Anusol-HC 2.5% Rectal Cream 10/11/2018 Unknown RECTAL THREE TIMES A DAY 1 unit(s) 7297105 RxNorm INSERT 1 EACH RECTAL THREE TIMES A DAY Aspirin 325MG Oral Tablet 10/11/2018 Unknown ORAL DAILY 325 MILLIGRAMS 172578 RxNorm TAKE 325 MILLIGRAMS ORAL DAILY CALCIUM CARBONATE 1.5 GM TAB 10/11/2018 Unknown ORAL DAILY 1.5 GRAM RxNorm TAKE 1.5 GRAM ORAL DAILY Ibuprofen 600MG Oral Tablet 10/11/2018 Unknown ORAL NEEDED FOUR TIMES A DAY 600 MILLIGRAMS 405798 RxNorm TAKE 600 MILLIGRAMS ORAL NEEDED FOUR TIMES A DAY KETOCONAZOLE 2% SHAMPOO 10/11/2018 Unknown TOPICAL APPLICA TION NEEDED DAILY 1 RxNorm 1 TOPICAL APPLICATION NEEDED DAILY Niacin 1000 MG Oral Tablet, Extended Release 10/11/2018 Unknown ORAL DAILY [id number] RxNorm TAKE 000 MILLIGRAMS ORAL DAILY Vitamin [...] Start Date Code Code Sys tem Cough 08/19/2023 [id number] SNOMED-CT Personal Care Team Section Performer Name Performer Role Active Date Inactive Da te
[2023-11-18 14:55] LABS: Hemoglobin A1C 5.6 % (<5.7)
[2023-11-18 15:01] LABS: ALT 28 U/L (16-63); AST 35 U/L (15-37); Albumin 4.1 g/dL (3.4-5.0); Alkaline Phosphatase 74 U/L (46-116); Anion Gap 6.5 mmol/L (3-11); BUN 16 mg/dL (7-18); Bilirubin, Total 0.56 mg/dL (0.2-1.0); CO2 30.5 mmol/L (21.0-32.0); CREATININE 1.1 mg/dL (0.70-1.30); Calcium 9.3 mg/dL (8.5-10.1); Chloride 103 mmol/L (98-107); Estimated GFR 74.96 (mL/min/1.73m2); Glucose 107 mg/dL (74-106); Potassium 4.3 mmol/L (3.5-5.1); Sodium 140 mmol/L (136-145); Total Protein 7.4 g/dL (6.4-8.2)
[2023-11-18 22:00] LABS: COMMENT (LAB VIEW ONLY) 307.46 mg/dL; Microalb ug/mg Crea 8.1 ug/mg Cr
== END 2023-11-18 10:31 | disposition home or self-care (01) ==
LOC: NCHCN 10:30
PROVIDERS: Visit Provider Family Medicine
DX: I10 Essential (primary) hypertension (principal); E66.9 Obesity, unspecified
CPT/HCPCS: 80053; 82043; 82570; 83036